=== PATIENT | female | born 1990 | race African-American/Black ===

== ENCOUNTER 2017-04-11 08:05 | Emergency (ER) | payer SELFPAY ==
[~2017-04-11] VITALS: Ht 160 cm; Wt 63.0 kg
[2017-04-11 08:07] VITALS: TEMP 36.8; Ht 160 cm; Wt 63.0 kg
[2017-04-11] MEDS ORDERED: SODIUM CHLORIDE 0.9% 1000ML 1,000 ML IV STA (08:47)
[2017-04-11 09:22] LABS: BASO % 0.1 %; BASO ABS # 0.01 K/uL (0-0.2); COMPLETE YES; EOS % 0.8 %; HEMATOCRIT 38.4 % (37-47); IG% 0.1 %; LYMPH % 23.9 %; LYMPH ABS # 2.01 K/uL (1.2-3.4); MEAN CELL VOLUME 85.7 fL (80-100); MEAN CORPUSCULAR HGB CONC 36.2 g/dl (32-36); MEAN PLATELET VOLUME 11.2 fL (7.4-10.4); MONO % 6.3 %; NEUT % 68.8 %; PLATELET COUNT 203 K/uL (130-400); RED BLOOD COUNT 4.48 M/uL (4.2-5.4); WHITE BLOOD COUNT 8.41 K/uL (4.8-10.8)
[2017-04-11 09:28] LABS: URINE APPEARANCE CLEAR (CLEAR); URINE BILIRUBIN NEG (NEG); URINE COLOR YELLOW; URINE NITRITE NEG (NEG); URINE PH 5.5 (4.5-7.5); URINE SPECIFIC GRAVITY 1.022 (1.000-1.030); UROBILINOGEN NEG (NEG)
[2017-04-11 09:29] LABS: MANUAL MICROSCOPIC REQUIRED? NO; REVIEW REQ? NO
[2017-04-11 09:31] LABS: INR 0.9 (0.9-1.1); PARTIAL THROMBOPLASTIN RATIO 1.1; PROTHROMBIN TIME (PATIENT) 9.8 SECONDS (9.0-12.0)
[2017-04-11 09:38] LABS: BUN/CREATININE RATIO 18.9 (10-20); CALCIUM 9.1 mg/dl (8.5-10.1); CREATININE 0.66 mg/dl (0.60-1.20); POTASSIUM 3.6 mmol/L (3.5-5.1)
[2017-04-11 09:41] LABS: ALB/GLOB RATIO 0.9 (0.9-2)
--- NOTE | 2017-04-11 10:21 | DIAGNOSTIC IMAGING REPORT ---
ABDOMINAL ULTRASOUND, RIGHT UPPER QUADRANT HISTORY: Generalized abdominal pain.. COMPARISON: None. FINDINGS: Pancreas: The pancreatic tail is obscured by overlying bowel gas. The remaining portions of the pancreas are within normal limits. Liver: Unremarkable. Gallbladder: No gallbladder wall thickening. No gallstones. CBD: 3 mm. Right kidney: No hydronephrosis. IMPRESSION: No significant abnormality identified within the right upper quadrant. Electronically signed by: Fabian Rea M.D. 04/11/2017 10:20 AM Dictated Date/Time: 04/11/2017 10:19 AM
--- NOTE | 2017-04-11 10:24 | DIAGNOSTIC IMAGING REPORT ---
EXAMINATION: PELVIC ULTRASOUND (transabdominal and endovaginal scanning) CLINICAL HISTORY: Vaginal bleeding COMPARISON STUDY: FINDINGS: The uterus measured 9.7 x 4.8 x 5.3 cm. The endometrial stripe measured 14 mm. There is a 14 mm cystlike structure within endometrium, possibly representing a gestational sac.. The right ovary measured 29 x 21 x 19 mm. The left ovary measured 53 x 29 x 31 mm. There is a complex 36 mm thick walled cyst, possibly representing a corpus luteum.. There is no ultrasonographic evidence of ovarian torsion. It should be noted that ovarian torsion can be present with normal Doppler ultrasonographic findings. There is complex fluid in the cul-de-sac and adnexal regions. IMPRESSION: 1. 14 mm cystlike structure within the endometrium, possibly representing early intrauterine gestational sac. Correlation with serial quantitative beta hCGs and follow-up ultrasonography is recommended 2. Complex 36 mm left ovarian cyst possibly representing a corpus luteum 3. Complex fluid within the cul-de-sac and adnexa. Electronically signed by: Seng Lynch M.D. 04/11/2017 10:22 AM Dictated Date/Time: 04/11/2017 10:19 AM
[2017-04-11 12:14] VITALS: BP 112/71; PULSE 73; O2SAT 100
--- NOTE | 2017-04-11 12:38 | EMERGENCY ROOM VISIT NOTE ---
History Report prepared by Carly: Juliann Bella Under the Supervision of: Dr. Oj Haywood D.O. First contact with patient: 08:16 Chief Complaint: ABDOMINAL PAIN Stated Complaint: LWR ABD. PAIN, SIDE AND BACK, TROUBLE BREATHING Nursing Triage Summary: pt reports right abd pain started 1 week ago. noticed after having intercourse 1 week ago hurt now pain in abd makes painful to breathe. hurts into back area. History of Present Illness The patient is a 26 year old female who presents to the Emergency Room with complaints of intermittent right-sided abdominal pain that started 1 week ago. The patient states that the pain seems to occur after having intercourse. She states that she experienced the pain for the first time last week after having intercourse with her . The pain lasted for 5 minutes then resolved on its own. She experienced the pain again this morning, around [id number], after trying to have intercourse. The pain was more severe today than it was last week and it lasted for 20 minutes. She states that the pain radiated into her back and legs. She also experienced shortness of breath with the pain as well as pain with ambulation. She denies any abnormal vaginal bleeding or discharge over the last week. The patient's last normal menstrual period was March 12. The patient has been 4 times in the past. She has 3 children at home and had 1 miscarriage 2 years ago. She states that she thinks the miscarriage was secondary to a blighted ovum. The patient has a history of an appendectomy but still has her gallbladder. Source of History: patient Onset: 1 week ago Position: abdomen (right-sided) Quality: other (right-sided abdominal pain) Timing: intermittent Modifying Factors (Worsening): other (intercourse) Associated Symptoms: + SOB, + back pain Note: bilateral leg pain, no abnormal vaginal bleeding or discharge Review of Systems See HPI for pertinent positives & negatives. A total of 10 systems reviewed and were otherwise negative. Past Medical & Surgical Medical Problems: (1) Bartholin's Gland Cyst (2) Hem Early Preg-Antepart Surgical Problems: (1) History of appendectomy Family History Cancer Hypertension Kidney disease Kidney stones Lung disease Seizures Social History Smoking Status: Current Every Day Smoker Alcohol Use: none Drug Use: none Marital Status: single Housing Status: lives with family Occupation Status: unemployed Current/Historical Medications No Active Prescriptions or Reported Meds Allergies Coded Allergies: No Known Allergies (Unverified , 04/11/17) Physical Exam Vital Signs Date Time Temp Pulse Resp B/P (MAP) Pulse Ox O2 Delivery O2 Flow Rate FiO2 04/11/17 12:14 73 15 112/71 100 Room Air 04/11/17 10:07 73 17 109/58 100 Room Air 04/11/17 08:07 36.8 74 18 109/71 100 Room Air Physical Exam CONSTITUTIONAL/VITAL SIGNS: Reviewed / noted above. GENERAL: Non-toxic in appearance. INTEGUMENTARY: Warm, dry, and [place]. HEAD: Normocephalic. EYES: without scleral icterus or trauma. ENT/OROPHARYNX: clear and moist. LYMPHADENOPATHY/NECK: Is supple without lymphadenopathy or meningismus. RESPIRATORY: Lungs clear and equal. CARDIOVASCULAR: Regular rate and rhythm. GI/ABDOMEN: Soft. Diffuse tenderness that is worse in the suprapubic and right lower quadrant areas. No organomegaly or pulsatile mass. No rebound or guarding. Normal bowel sounds. EXTREMITIES: Warm and well perfused. BACK: Mild right CVA tenderness. NEUROLOGICAL: Intact without focal deficits. PSYCHIATRIC: normal affect. MUSCULOSKELETAL: Normally developed with good muscle tone. Medical Decision & Procedures ER Provider Diagnostic Interpretation: US results as stated below per my review and radiologist interpretation: ABDOMINAL ULTRASOUND, RIGHT UPPER QUADRANT FINDINGS: Pancreas: The pancreatic tail is obscured by overlying bowel gas. The remaining portions of the pancreas are within normal limits. Liver: Unremarkable. Gallbladder: No gallbladder wall thickening. No gallstones. CBD: 3 mm. Right kidney: No hydronephrosis. IMPRESSION: No significant abnormality identified within the right upper quadrant. Electronically signed by: Fabian Rea M.D. 04/11/2017 10:20 AM Dictated Date/Time: 04/11/2017 10:19 AM EXAMINATION: PELVIC ULTRASOUND (transabdominal and endovaginal scanning) FINDINGS: The uterus measured 9.7 x 4.8 x 5.3 cm. The endometrial stripe measured 14 mm. There is a 14 mm cystlike structure within endometrium, possibly representing a gestational sac.. The right ovary measured 29 x 21 x 19 mm. The left ovary measured 53 x 29 x 31 mm. There is a complex 36 mm thick walled cyst, possibly representing a corpus luteum.. There is no ultrasonographic evidence of ovarian torsion. It should be noted that ovarian torsion can be present with normal Doppler ultrasonographic findings. There is complex fluid in the cul-de-sac and adnexal regions. IMPRESSION: 1. 14 mm cystlike structure within the endometrium, possibly representing early intrauterine gestational sac. Correlation with serial quantitative beta hCGs and follow-up ultrasonography is recommended 2. Complex 36 mm left ovarian cyst possibly representing a corpus luteum 3. Complex fluid within the cul-de-sac and adnexa. Electronically signed by: Seng Lynch M.D. 04/11/2017 10:22 AM Dictated Date/Time: 04/11/2017 10:19 AM Laboratory Results 04/11/17 09:07 Red Blood Count 4.48, Mean Corpuscular Volume 85.7, Mean Corpuscular Hemoglobin 31.0, Mean Corpuscular Hemoglobin Concent 36.2, Mean Platelet Volume 11.2, Neutrophils (%) (Auto) 68.8, Lymphocytes (%) (Auto) 23.9, Monocytes (%) (Auto) 6.3, Eosinophils (%) (Auto) 0.8, Basophils (%) (Auto) 0.1, Neutrophils # (Auto) 5.78, Lymphocytes # (Auto) 2.01, Monocytes # (Auto) 0.53, Eosinophils # (Auto) 0.07, Basophils # (Auto) 0.01 04/11/17 09:07 Test 04/11/17 08:30 04/11/17 09:07 Urine Color YELLOW Urine Appearance CLEAR (CLEAR) Urine pH 5.5 (4.5-7.5) Urine Specific [place] 1.022 (1.000-1.030) Urine Protein NEG (NEG) Urine Glucose (UA) NEG (NEG) Urine Ketones NEG (NEG) Urine Occult Blood NEG (NEG) Urine Nitrite NEG (NEG) Urine Bilirubin NEG (NEG) Urine Urobilinogen NEG (NEG) Urine Leukocyte Esterase NEG (NEG) White Blood Count 8.41 K/uL (4.8-10.8) Red Blood Count 4.48 M/uL (4.2-5.4) Hemoglobin 13.9 g/dL (12.0-16.0) Hematocrit 38.4 % (37-47) Mean Corpuscular Volume 85.7 fL (80-100) Mean Corpuscular Hemoglobin 31.0 pg (25-34) Mean Corpuscular Hemoglobin Concent 36.2 g/dl (32-36) Platelet Count 203 K/uL (130-400) Mean Platelet Volume 11.2 fL (7.4-10.4) Neutrophils (%) (Auto) 68.8 % Lymphocytes (%) (Auto) 23.9 % Monocytes (%) (Auto) 6.3 % Eosinophils (%) (Auto) 0.8 % Basophils (%) (Auto) 0.1 % Neutrophils # (Auto) 5.78 K/uL (1.4-6.5) Lymphocytes # (Auto) 2.01 K/uL (1.2-3.4) Monocytes # (Auto) 0.53 K/uL (0.11-0.59) Eosinophils # (Auto) 0.07 K/uL (0-0.5) Basophils # (Auto) 0.01 K/uL (0-0.2) RDW Standard Deviation 41.4 fL (36.4-46.3) RDW Coefficient of Variation 13.2 % (11.5-14.5) Immature Granulocyte % (Auto) 0.1 % Immature Granulocyte # (Auto) 0.01 K/uL (0.00-0.02) Prothrombin Time 9.8 SECONDS (9.0-12.0) Prothromb Time International Ratio 0.9 (0.9-1.1) Activated Partial Thromboplast Time 27.6 SECONDS (21.0-31.0) Partial Thromboplastin Ratio 1.1 Anion Gap 7.0 mmol/L (3-11) Est Creatinine Clear Calc Drug Dose 116.5 ml/min Estimated GFR () 142.3 Estimated GFR (Non- 122.8 BUN/Creatinine Ratio 18.9 (10-20) Calcium Level 9.1 mg/dl (8.5-10.1) Total Bilirubin 0.3 mg/dl (0.2-1) Aspartate Amino Transf (AST/SGOT) 11 U/L (15-37) Alanine Aminotransferase (ALT/SGPT) 16 U/L (12-78) Alkaline Phosphatase 69 U/L (45-117) Total Protein 7.5 gm/dl (6.4-8.2) Albumin 3.6 gm/dl (3.4-5.0) Globulin 3.9 gm/dl (2.5-4.0) Albumin/Globulin Ratio 0.9 (0.9-2) Human Chorionic Gonadotropin, Quant 1574 mIU/mL Laboratory results as stated above per my review. Medications Administered Medications (Trade) Dose Ordered Sig/Margarita Route Start Time Stop Time Status Last Admin Dose Admin Sodium Chloride 1,000 ml @ 999 mls/hr Q1H1M STAT IV 04/11/17 08:47 04/11/17 09:48 DC 04/11/17 09:13 999 MLS/HR ED Course 0841: Previous medical records were reviewed. The patient was evaluated in room A4. A complete history and physical examination was performed. 0847: Ordered Sodium Chloride 1000 ml @ 999 mls/hr IV 1223: On reevaluation, the patient is doing well. I discussed the results and findings with the patient. She verbalized agreement of the treatment plan. She was discharged home. Medical Decision Differential considered: pancreatitis, hepatitis, or acute cholecystitis, AAA, UTI, pyelonephritis, kidney stones, appendicitis, diverticulitis, shingles, bowel obstruction mesenteric ischemia, intussusception, hernia, ovarian torsion , ruptured ovarian cyst, ectopic , . This is a 26-year-old female who presents to the ED with a chief complaint of right-sided abdominal pain for the past week. She states that this morning around 7 AM she attempted having intercourse with her when she developed the pain. She also states the same thing occurred about a week ago. It lasted for about 20 minutes. The patient states that her last muscle. Was March 14. She is a with a positive test today. She has history of 1 miscarriage 2 years ago. The patient reports appendectomy in the past. She denies any other significant symptoms. She denies any vaginal bleeding or vaginal discharge. She denies any flank pain, nausea, vomiting or diarrhea. The patient's O+ blood type. Quantitative hCG was 1574. Complete metabolic panel was normal. CBC was normal. Gallbladder ultrasound was negative. Ultrasound of the pelvis reveals a 14 mm cystic structure in the uterus that could be suggestive of an early gestational sac. There is also a complex left ovarian cyst at 3.6 cm that could be a corpus luteum cyst and there is some complex fluid in the cul-de-sac. The patient was told the results of the test. She declined a pelvic exam. 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 The patient is felt to be stable for discharge. She will return for worsening or new symptoms. Medication Reconcilliation Current Medication List: was personally reviewed by me Blood Pressure Screening Patient's blood pressure: Normal blood pressure Impression Primary Impression: First trimester Additional Impression: Pelvic pain Scribe Attestation The scribe's documentation has been prepared under my direction and personally reviewed by me in its entirety. I confirm that the note above accurately reflects all work, treatment, procedures, and medical decision making performed by me. Departure Information Dispostion Home / Self-Care Prescriptions No Active Prescriptions or Reported Meds Referrals [facility] (PCP) Forms HOME CARE DOCUMENTATION FORM, IMPORTANT VISIT INFORMATION Patient Instructions My [facility] Additional Instructions Follow-up with [facility] in medicine in 2 days for recheck. A repeat quantitative hCG and ultrasound should be done. Return here for worsening or new symptoms. Take Tylenol for pain. Advised taking vitamins as well. Problem Qualifiers
== END 2017-04-11 12:44 | disposition home or self-care (01) ==
LOC: C.EDB 08:06 → C.EDA 12:44
DX: O00.01 Abdominal pregnancy with intrauterine pregnancy (principal); N83.202 Unspecified ovarian cyst, left side; N93.9 Abnormal uterine and vaginal bleeding, unspecified; R10.2 Pelvic and perineal pain; F17.210 Nicotine dependence, cigarettes, uncomplicated

== ENCOUNTER 2017-10-16 23:59 | Emergency (ER) | payer SELFPAY ==
[~2017-10-16] VITALS: Ht 160 cm; Wt 61.1 kg
[2017-10-17 00:03] VITALS: TEMP 37.2; Ht 160 cm; Wt 61.1 kg
[2017-10-17] MEDS ORDERED: XYLOCAINE 1%/SOD BICARB 20 ML VIAL INFIL STA (00:56)
--- NOTE | 2017-10-17 01:47 | EMERGENCY ROOM VISIT NOTE ---
ED Visit Note First contact with patient: 00:08 CHIEF COMPLAINT: Infection of the Bartholin's Gland HISTORY OF PRESENT ILLNESS: This 27-year-old female patient presents to the emergency department one day after they noticed a hard, red, tender area of the left labia. The patient does report a history of Bartholin's gland abscess, and states she has had to have them drained in the past. It is slowly getting larger, more painful and tender. No fever, chills, or loss of appetite. There has been no drainage from the area. There was no injury to the area preceding the infection. They rate the pain as severe and 10/10. Tetanus shot is up to date. They have tried nothing for the symptoms. The patient is not diabetic. REVIEW OF SYSTEMS: A 10 system review of systems was performed with positives and pertinent negatives listed in the history of present illness. All other systems were reviewed and are negative. ALLERGIES: None MEDICATIONS: None PMH: None SOCIAL HISTORY: Patient lives locally with family. She denies drug, alcohol, tobacco use. PHYSICAL EXAM: Vital Signs: Reviewed Nurse's notes, vital signs stable. GENERAL : This is a 27-year-old female, no acute distress, non toxic in appearance, well -developed well-nourished. SKIN: There is an erythematous indurated area of the left labia which measures about 2 cm in diameter. It is fluctuant but there is no pointing or drainage. There is a zone of inflammation around it but no lymphangitis. Capillary refill less than 2 seconds. MUSCULOSKELETAL: There is no limitation of the range of motion of the left lower extremity. EMERGENCY DEPARTMENT COURSE: I examined the patient. Verbal consent was obtained to perform the procedure. After saline and Betadine cleansing and 10 mL of 1% buffered lidocaine anesthesia, the abscess was incised with a number 11 scalpel blade. A large amount of purulent material was released with more expressed by pressure. A swab was obtained for culture. The abscess cavity was further probed with a needle stunt driver and the deep pocket expressed. The abscess cavity was then copiously irrigated with sterile saline under pressure. The area was then packed with bacitracin soaked packing. The area was cleaned with sterile saline and dressed with bacitracin and a bulky bandage. The patient did not tolerate the procedure well, and reported a significant amount of discomfort throughout the procedure. The patient was discharged home in stable condition. I attest that I have personally reviewed the patient's current medication list. Patient was found to have normal blood pressure on screening and does not require follow-up. DIFFERENTIAL DIAGNOSIS: Bartholin's cyst, abscess, STD, cellulitis, malignancy, lymphangitis, and others DIAGNOSIS: Abscess of the Bartholin's gland Problem List Medical Problems: (1) Bartholin's Gland Cyst Status: Resolved (2) Hem Early Preg-Antepart Status: Resolved Surgical Problems: (1) History of appendectomy Status: Chronic Current/Historical Medications No Active Prescriptions or Reported Meds Allergies Coded Allergies: No Known Allergies (Unverified , 10/17/17) Vital Signs Date Time Temp Pulse Resp B/P (MAP) Pulse Ox O2 Delivery O2 Flow Rate FiO2 10/17/17 02:00 88 18 112/72 99 10/17/17 00:03 37.2 95 20 107/72 99 Room Air Departure Information Impression Primary Impression: Bartholin's gland abscess Dispostion Home / Self-Care Condition GOOD Prescriptions No Active Prescriptions or Reported Meds Referrals No Doctor, Assigned (PCP) Patient Instructions ED Bartholins Cyst Trini, My [facility] Additional Instructions You were seen in the emergency department today for a Bartholin's gland abscess. This was incised and drained. A small amount of packing was placed within the abscess. This can be removed tomorrow. Please just pull on the end of the packing to remove it. Please keep the area clean and dry. You may want to consider sitz baths or warm soaks to help with drainage. 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 Ibuprofen(Motrin, Advil) may be used for fever or pain. Use 600mg every six hours as needed. Take with food. Avoid using more than 2400mg in a 24 hour period. Do not use 2400mg per day for more than three consecutive days without physician direction. Prolonged inappropriate use can lead to stomach upset or ulcers. (AND/OR) Acetaminophen(Tylenol) may be used for fever or pain. Use 1000mg every six hours as needed. Avoid using more than 3000mg in a 24 hour period. Return to the emergency department for significant redness, swelling, worsening pain, fever, chills or other concerning symptoms.
[2017-10-17 02:00] VITALS: BP 112/72; PULSE 88; O2SAT 99
== END 2017-10-17 02:01 | disposition home or self-care (01) ==
LOC: C.EDB 10-17 00:01
DX: N75.1 Abscess of Bartholin's gland (principal)

== ENCOUNTER 2017-12-27 17:28 | Emergency (ER) | payer SELFPAY ==
[~2017-12-27] VITALS: Ht 160 cm; Wt 62.2 kg
[2017-12-27 17:33] VITALS: TEMP 37; Ht 160 cm; Wt 62.2 kg
[2017-12-27] MEDS ORDERED: ALBUT/IPRATROP 3MG/0.5MG NEB 3 ML VIAL INH STA (17:47)
[2017-12-27] MEDS ORDERED: KETOROLAC TROMETHAMINE 30 MG/ML VIAL IV STA (17:47)
[2017-12-27 18:09] LABS: BASO % 0.4 %; BASO ABS # 0.03 K/uL (0-0.2); EOS % 3.5 %; EOS ABS # 0.27 K/uL (0-0.5); HEMATOCRIT 38.6 % (37-47); HEMOGLOBIN 13.6 g/dL (12.0-16.0); IG# 0.01 K/uL (0.00-0.02); LYMPH % 18.5 %; LYMPH ABS # 1.41 K/uL (1.2-3.4); MEAN CELL VOLUME 85.8 fL (80-100); MEAN CORPUSCULAR HEMOGLOBIN 30.2 pg (25-34); MEAN CORPUSCULAR HGB CONC 35.2 g/dl (32-36); MEAN PLATELET VOLUME 10.7 fL (7.4-10.4); MONO % 8.1 %; MONO ABS # 0.62 K/uL (0.11-0.59); NEUT % 69.4 %; PLATELET COUNT 203 K/uL (130-400); RED CELL DISTRIBUTION WIDTH CV 13.9 % (11.5-14.5); RED CELL DISTRIBUTION WIDTH SD 43.6 fL (36.4-46.3); WHITE BLOOD COUNT 7.64 K/uL (4.8-10.8)
--- NOTE | 2017-12-27 18:16 | DIAGNOSTIC IMAGING REPORT ---
CHEST 2 VIEWS ROUTINE CLINICAL HISTORY: cough ATYPICAL CHEST PAIN COMPARISON STUDY: 07/16/2017 FINDINGS: The cardiac and mediastinal contours are normal. There is no evidence of focal pulmonary consolidation. There is no evidence of failure. No pleural effusions are visualized.[ No pneumothorax is visualized. IMPRESSION: No active disease in the chest. Electronically signed by: Seng Lynch M.D. 12/27/2017 6:15 PM Dictated Date/Time: 12/27/2017 6:14 PM
[2017-12-27 18:28] LABS: CALCIUM 8.8 mg/dl (8.5-10.1); CREATININE 0.86 mg/dl (0.60-1.20); POTASSIUM 3.6 mmol/L (3.5-5.1)
[2017-12-27] MEDS ORDERED: METH4PAK PO (18:35)
[2017-12-27] MEDS ORDERED: VNTHFA/IN INH (18:35)
[2017-12-27] MEDS ORDERED: AZITTAB PO (18:35)
--- NOTE | 2017-12-27 18:37 | EMERGENCY ROOM VISIT NOTE ---
History First contact with patient: 17:38 Chief Complaint: COUGH Stated Complaint: CHEST PAIN, SIDE PAIN, SOB History of Present Illness The patient is a 27 year old female who presents to the Emergency Room with complaints of cough for the past 3-4 days. The patient states that the cough is productive with yellow sputum. She admits to some nasal congestion but denies any ear pain or sore throat, fever. The patient states that she is concerned because now it is hurting in the left posterior lower rib area when she coughs or moves. The patient is a smoker. The patient states she has been taking [id number] TheraFlu and ibuprofen just on 2 occasions. The patient denies any history of asthma or lung disease. Review of Systems 10 system review was performed and was negative unless stated otherwise history of present illness. Past Medical/Surgical History Medical Problems: (1) Bartholin's Gland Cyst (2) Hem Early Preg-Antepart Surgical Problems: (1) History of appendectomy Kidney stones Family History Cancer Hypertension Kidney disease Kidney stones Lung disease Seizures Social History Smoking Status: Current Every Day Smoker Alcohol Use: none Drug Use: none Marital Status: single Housing Status: lives with family Occupation Status: unemployed Current/Historical Medications No Active Prescriptions or Reported Meds Physical Exam Vital Signs Date Time Temp Pulse Resp B/P (MAP) Pulse Ox O2 Delivery O2 Flow Rate FiO2 12/27/17 18:12 80 18 100/53 97 Room Air 12/27/17 17:33 37.0 88 20 96 Room Air Physical Exam PHYSICAL EXAM: Vital Signs were reviewed: Temperature 37.0, pulse 88, respiratory rate 20, pulse ox 96% on room air reviewed Nurse's notes and agree. . GENERAL: 27-year-old female appears in no acute distress. MENTAL STATUS: Alert, oriented, coherent. EARS: Canals clear. TMs good light reflex, no erythema or fluid level noted. NOSE: Nasal mucosa with moderate erythema engorgement. PHARYNX: No erythema, no edema noted. No exudate noted. Airway is adequate. NECK: Supple, non-tender. No lymphadenopathy noted. LUNGS: Patient has decreased breath sounds throughout both lung escobar. Rhonchi noted throughout both lung escobar as well. No wheezing noted. CARDIAC: Regular rate and rhythm without murmur. SKIN: No rashes noted. Medical Decision & Procedures ER Provider Diagnostic Interpretation: CHEST 2 VIEWS ROUTINE CLINICAL HISTORY: cough ATYPICAL CHEST PAIN COMPARISON STUDY: 07/16/2017 FINDINGS: The cardiac and mediastinal contours are normal. There is no evidence of focal pulmonary consolidation. There is no evidence of failure. No pleural effusions are visualized.[ No pneumothorax is visualized. IMPRESSION: No active disease in the chest. Electronically signed by: Seng Lynch M.D. 12/27/2017 6:15 PM Laboratory Results 12/27/17 17:50 Red Blood Count 4.50, Mean Corpuscular Volume 85.8, Mean Corpuscular Hemoglobin 30.2, Mean Corpuscular Hemoglobin Concent 35.2, Mean Platelet Volume 10.7, Neutrophils (%) (Auto) 69.4, Lymphocytes (%) (Auto) 18.5, Monocytes (%) (Auto) 8.1, Eosinophils (%) (Auto) 3.5, Basophils (%) (Auto) 0.4, Neutrophils # (Auto) 5.30, Lymphocytes # (Auto) 1.41, Monocytes # (Auto) 0.62, Eosinophils # (Auto) 0.27, Basophils # (Auto) 0.03 12/27/17 17:50 Test 12/27/17 17:50 White Blood Count 7.64 K/uL (4.8-10.8) Red Blood Count 4.50 M/uL (4.2-5.4) Hemoglobin 13.6 g/dL (12.0-16.0) Hematocrit 38.6 % (37-47) Mean Corpuscular Volume 85.8 fL (80-100) Mean Corpuscular Hemoglobin 30.2 pg (25-34) Mean Corpuscular Hemoglobin Concent 35.2 g/dl (32-36) Platelet Count 203 K/uL (130-400) Mean Platelet Volume 10.7 fL (7.4-10.4) Neutrophils (%) (Auto) 69.4 % Lymphocytes (%) (Auto) 18.5 % Monocytes (%) (Auto) 8.1 % Eosinophils (%) (Auto) 3.5 % Basophils (%) (Auto) 0.4 % Neutrophils # (Auto) 5.30 K/uL (1.4-6.5) Lymphocytes # (Auto) 1.41 K/uL (1.2-3.4) Monocytes # (Auto) 0.62 K/uL (0.11-0.59) Eosinophils # (Auto) 0.27 K/uL (0-0.5) Basophils # (Auto) 0.03 K/uL (0-0.2) RDW Standard Deviation 43.6 fL (36.4-46.3) RDW Coefficient of Variation 13.9 % (11.5-14.5) Immature Granulocyte % (Auto) 0.1 % Immature Granulocyte # (Auto) 0.01 K/uL (0.00-0.02) Anion Gap 6.0 mmol/L (3-11) Est Creatinine Clear Calc Drug Dose 82.0 ml/min Estimated GFR () 108.1 Estimated GFR (Non- 93.2 BUN/Creatinine Ratio 9.4 (10-20) Calcium Level 8.8 mg/dl (8.5-10.1) Medications Administered Medications (Trade) Dose Ordered Sig/Margarita Route Start Time Stop Time Status Last Admin Dose Admin Ketorolac Tromethamine (Toradol Inj) 30 mg NOW STAT IV 12/27/17 17:47 12/27/17 17:49 DC 12/27/17 17:54 30 MG Albuterol/ Ipratropium (Duoneb) 3 ml NOW STAT INH 12/27/17 17:47 12/27/17 17:49 DC 12/27/17 17:54 3 ML ED Course She was evaluated. The patient's EMR medication list were reviewed. IV access was obtained. CBC and differential, renal profile was ordered. The patient was given a DuoNeb. The patient was given Toradol 30 mg IV for pain. Chest x- ray was ordered and interpreted by the radiologist and myself as above without any acute findings. Labs are reviewed and were normal. The patient was reevaluated and stated she felt a little better after the DuoNeb. The patient was discharged home in stable condition. Medical Decision Differential diagnosis include pneumonia, bronchitis, viral URI, pleuritic chest pain, costochondritis The patient is usually seen at [facility] therefore I will prophylactically treat this patient with antibiotics. [place] Drug Monitoring [place] Search Results: patient reviewed within database Medication Reconcilliation Current Medication List: was personally reviewed by me Blood Pressure Screening Patient's blood pressure: Normal blood pressure Impression Primary Impression: Upper respiratory infection Departure Information Dispostion Home / Self-Care Condition GOOD Prescriptions Albuterol Hfa (VENTOLIN HFA) 200 Puffs/06844 Mcg Aers 2 PUFFS INH QID for 5 Days, #1 INHALER Prov: Rachana Meneses PA-C 12/27/17 Azithromycin (ZITHROMAX Z-LORENZO) 250 Mg Tab 0 PO UD, #1 PKT Prov: Rachana Meneses PA-C 12/27/17 Methylprednisolone (MEDROL DOSEPAK) 4 Mg Lorenzo 0 PO DAILY, #1 PKT Prov: Rachana Meneses PA-C 12/27/17 Referrals No Doctor, Assigned (PCP) Forms HOME CARE DOCUMENTATION FORM, IMPORTANT VISIT INFORMATION Patient Instructions [facility] - [facility], [facility] Additional Instructions Ibuprofen 600 mg every 6 hours with food for pain. Take Medrol Dosepak as prescribed. Recommend fmfv-npp-[id number] Mucinex as directed on the label for 5 days. Use the inhaler 2 puffs every 4 hours for 5 days then 2 puffs every 4 hours as needed. Take Z-Lorenzo as prescribed. If symptoms persist or worsen, return to the ER. Problem Qualifiers Primary Impression: Upper respiratory infection URI type: unspecified viral URI Qualified Codes: J06.9 - Acute upper respiratory infection, unspecified
[2017-12-27 19:23] VITALS: BP 101/59; PULSE 82; O2SAT 96
== END 2017-12-27 19:20 | disposition home or self-care (01) ==
LOC: C.EDB 17:29
DX: J06.9 Acute upper respiratory infection, unspecified (principal); F17.200 Nicotine dependence, unspecified, uncomplicated

== ENCOUNTER 2018-04-23 19:52 | Emergency (ER) | payer SELFPAY ==
[~2018-04-23] VITALS: Ht 160 cm; Wt 59.0 kg
[2018-04-23 19:55] VITALS: TEMP 36.9; Ht 160 cm; Wt 59.0 kg
[2018-04-23] MEDS ORDERED: ACET-1256 PO (20:31)
[2018-04-23] MEDS ORDERED: ASPI-391 PO (20:32)
[2018-04-23] MEDS ORDERED: IBUP-1050 PO (20:32)
[2018-04-23] MEDS ORDERED: OXYC-90 PO (20:36)
[2018-04-23] MEDS ORDERED: AMOX875T PO (20:36)
[2018-04-23] MEDS ORDERED: OXYCODONE IR HOME PACK PO ONE (20:45)
[2018-04-23] MEDS ORDERED: AMOXICIL/CLAVU 875MG HOME PACK PO ONE (20:45)
[2018-04-23 21:02] VITALS: BP 105/66; PULSE 80; O2SAT 98
--- NOTE | 2018-04-23 23:48 | EMERGENCY ROOM VISIT NOTE ---
History First contact with patient: 20:03 Chief Complaint: DENTAL PAIN Stated Complaint: TOOTHACHE, HEADACHE,EAR PAIN, FACE SWOLLEN Nursing Triage Summary: Patient c/o dental pain that began 4 days ago. History of Present Illness The patient is a 27 year old female who presents to the Emergency Room with complaints of right upper and lower dental pain. The patient reports that her pain started 4 days ago, and is now noticing swelling of the face. She does report a history of dental problems, and actually had dental extractions performed in the past at [facility]. She did call her office but they cannot get her in to see a dentist until next month. The patient reports that she has been taking ibuprofen and Tylenol without relief, and rates her discomfort an 8 out of 10. She denies any fevers or chills, or difficulty swallowing. Review of Systems 10 system review was performed and was negative except for pertinent positives and negatives as indicated in history of present illness Past Medical/Surgical History Medical Problems: (1) Bartholin's Gland Cyst (2) Dental infection (3) Hem Early Preg-Antepart Surgical Problems: (1) History of appendectomy Family History Cancer Hypertension Kidney disease Kidney stones Lung disease Seizures Social History Smoking Status: Current Every Day Smoker Alcohol Use: none Drug Use: none Marital Status: single Housing Status: lives with family Occupation Status: unemployed Current/Historical Medications Scheduled Amoxicillin & Pot Clavulanate (Augmentin 875-125 mg), 1 TAB PO BID Scheduled PRN Acetaminophen (Tylenol), 1,000 MG PO DAILY PRN for Pain Wdltrkj-Nfnaeycckibhh-Rlsrpipu (Excedrin Extra Strength), 2 TABS PO DAILY PRN for Pain Ibuprofen (Advil), 400 MG PO DAILY PRN for Pain Oxycodone Ir (Roxicodone Ir), 1 TAB PO Q4H PRN for Pain Physical Exam Vital Signs Date Time Temp Pulse Resp B/P (MAP) Pulse Ox O2 Delivery O2 Flow Rate FiO2 04/23/18 21:02 80 18 105/66 98 04/23/18 19:55 36.9 84 18 97/61 97 Room Air Physical Exam CONSTITUTIONAL: Healthy and well nourished. Alert and oriented X 3 with positive affect. HEENT: Normocephalic, atraumatic. Pupils equal, round and reactive. No obvious facial edema noted. No overriding erythema. OROPHARYNX: The patient has eroded cavities of the right maxillary and mandibular molars. She has no obvious gingival erythema, fluctuance or pointing. No evidence for Vinayak's angina or retropharyngeal abscess. LYMPHATICS: No preauricular, submental, submandibular or cervical chain adenopathy. NECK: Full active range of motion without discomfort. RESPIRATORY: Clear to auscultation bilaterally with no wheezing, crackles, rhonchi or stridor. CARDIOVASCULAR: Regular rate and rhythm with no murmurs, rubs or gallops. INTEGUMENTARY: No rash or other significant dermatologic conditions noted. NEUROLOGIC: Facial sensations are intact. Medical Decision & Procedures ED Course Patient history and physical exam were performed. Nurse's notes were reviewed. Vital signs were reviewed and were normal. The patient will be provided prescriptions for Augmentin and OxyIR 5 mg. She was encouraged to continue alternating ibuprofen and Tylenol for baseline pain relief. She was instructed to follow-up with her dentist for further management. The patient was advised that she may need to follow-up with [facility] for further management until she can see her dentist. She was instructed to return to the emergency department for any significantly worsening swelling, fever or other concerns. The patient was advised that the emergency department does not provide dental services, referrals or ongoing dental pain management. The patient was happy with plan of care, voiced understanding of all discharge instructions, and rated her discomfort a 6 out of 10 at the conclusion of my exam. Medical Decision [place] Drug Monitoring [place] Search Results: patient reviewed within database, no issues identified Medication Reconcilliation Current Medication List: was personally reviewed by [place] Blood Pressure Screening Patient's blood pressure: Normal blood pressure Impression Primary Impression: Pain, dental Departure Information Dispostion Home / Self-Care Condition GOOD Prescriptions Oxycodone Ir (Roxicodone Ir) 5 Mg Tab 1 TAB PO Q4H Y for Pain, #15 TAB For Initial Treatment Prov: Parish Franklin PA 04/23/18 Amoxicillin & Pot Clavulanate (Augmentin 875-125 mg) 1 Tab Tab 1 TAB PO BID for 9 Days, #18 TAB Prov: Parish Franklin PA 04/23/18 Forms HOME CARE DOCUMENTATION FORM, IMPORTANT VISIT INFORMATION Patient Instructions [facility] Additional Instructions Finish all Augmentin antibiotics as prescribed. Ibuprofen 800 mg and/or Tylenol 1000 mg every 8 hours. You may also alternate these medications for more effective pain relief: Ibuprofen --4 HRS--> Tylenol --4 HRS--> ibuprofen --4 HRS--> Tylenol .... OxyIR if needed for worse pain. Do not drink or drive while taking OxyIR. Soft foods. Return to the emergency department for any progressively worsening infection. YOU MUST SEE A DENTIST FOR DEFINITIVE CARE. THE EMERGENCY DEPARTMENT DOES NOT PROVIDE DENTAL SERVICES, REFERRALS OR CHRONIC DENTAL PAIN MANAGEMENT. YOU MAY ALSO CALL [facility] FOR PAIN MANAGEMENT UNTIL YOU SEE YOUR DENTIST.
== END 2018-04-23 21:03 | disposition home or self-care (01) ==
LOC: C.EDB 19:54 → C.EDD 21:03
DX: K08.89 Other specified disorders of teeth and supporting structures (principal); F17.200 Nicotine dependence, unspecified, uncomplicated

== ENCOUNTER 2019-05-15 23:28 | Inpatient (IN) ==
[2019-05-16 00:32] LABS: Hematocrit (blood only) 31.4 % (37-47); Hemoglobin 11.1 g/dL (12.0-16.0); Mean Corpuscular Volume 84.9 fL (80-100); Mean Platelet Volume 11.2 fL (7.4-10.4); Platelet Count 194 K/uL (130-400); RDW Coefficient of Variation 13.8 % (11.5-14.5); RDW Standard Deviation 42.6 fL (36.4-46.3); White Blood Count 10.55 K/uL (4.8-10.8)
[2019-05-16 00:35] LABS: Mean Corpuscular Hgb Conc 35.4 g/dL (32-36)
[2019-05-16] MEDS ORDERED: OXYTOCIN 30 UNITS/500 ML BAG IV PRN ×2 (00:44→03:42)
[2019-05-16] MEDS ORDERED: PENICILLIN G POTASSIUM 6 MU in DEXTROSE 5% 250 ML IV STA (00:44)
[2019-05-16] MEDS: LACTATED RINGER'S 1,000 ML IV PRN ×2 (01:03→02:04)
[2019-05-16] MEDS ORDERED: BUPIVACAINE 0.25% 30 ML VIAL ONE (01:06)
[2019-05-16] MEDS ORDERED: fentaNYL citrate 100 MCG/2 ML VIAL ONE (01:07)
[2019-05-16] MEDS ORDERED: ePHEDrine sulfate 50 MG/ML AMP ONE (01:07)
[2019-05-16] MEDS ORDERED: fentaNYL 2MCG/ML ROPIV 1.25MG/ML 100 ML BAG EPI ONE (01:07)
--- NOTE | 2019-05-16 01:14 | History and Physical Report ---
DATE OF ADMISSION: 05/16/2019 CHIEF COMPLAINT: Intrauterine , 40 weeks gestation, contractions. HISTORY OF PRESENT ILLNESS: The patient is a 28-year-old 6, para 3. She had 2 spontaneous ABs. She is in good general health. No problems. Her due date is 05/15/2019. OBSTETRICAL HISTORY: As follows: In 2009, she had a girl, 6 pounds 5 ounces, spontaneous vaginal delivery, 41+ weeks gestation, 8-hour labor, half hour push. Second, in 2011, boy, 5 pounds 10 ounces, spontaneous vaginal delivery, 37 weeks, 3-hour labor, 10-minute push, and then last one in 2012, a girl, 6 pounds 10 ounces, spontaneous vaginal delivery about 8-hour labor, 10-minute push. She states she is isaias all day, has not been in the office for care for weeks. ALLERGIES: No known drug allergies. PAST SURGICAL HISTORY: No previous surgery, except for an appendix at age 12. No history of rheumatic fever, heart disease, heart murmur, diabetes, tuberculosis. Three children in good health. SOCIAL HISTORY: No smoking. No excessive alcohol intake. She is employed outside the home. FAMILY HISTORY: Mom is 44 in good health. Father, 42, in good health. Five sisters, 3 brothers in good health. REVIEW OF SYSTEMS: HEAD: No symptoms of frequent or severe headaches. EYES: No symptoms of blurred vision, double vision. EARS: No symptoms of frequent ear infections, difficulty hearing. PHYSICAL EXAMINATION: GENERAL: Well-developed, well-nourished 28-year-old white female, alert, oriented x3 and cooperative, in no acute distress, appeared her stated age EYES: Conjunctivae are pink. Sclerae white, no evidence of jaundice. EARS: Had normal light reflex bilaterally. NOSE: Had normal mucosa. Septum is midline. There were no polyps. THROAT: No erythema or evidence of infection. Teeth are in good state of repair. HEAD: Normocephalic, normal distribution of hair. NECK: Supple. Trachea midline. Thyroid is not enlarged. There is no adenopathy appreciated. Both carotids are of good intensity. CHEST: Clear to auscultation and percussion. No wheezes, rales or rhonchi appreciated. HEART: Had regular rhythm. S1, S2 are normal. BREASTS: Normal. ABDOMEN: Soft and nontender. Term size fetus. Contractions every 2-3 minutes. MUSCULOSKELETAL: Revealed no calf tenderness. PELVIC: Cervix 5-6 cm, vertex presentation. IMPRESSIONS OF THIS CASE: Intrauterine at term, active labor. History of appendectomy. No current care.
[2019-05-16 01:16] LABS: Rubella IgG Antibody Immune (Immune)
[2019-05-16 01:17] LABS: Hepatitis B Surface Antigen Neg (Neg)
--- NOTE | 2019-05-16 01:40 | Anesthesiology Consultation ---
Date of Service May 16, 2019 Assessment & Plan Chart Review Chart Review: Acceptable Risk for Surgery, Patient NOT seen in Pre Admission Testing and Acceptable Risk for Labor Epidural Consults Requested none ASA ASA2 Proposed Anesthesia Anesthesia Type: General and Labor Epidural Risk / Benefits Reviewed With: PT / POA / Parent / Guardian, Accepts Plan and Informed Consent Obtained History Height/Weight Height: 5 ft 3 in Weight: 75.75 kg Allergies Allergy/AdvReac Type Severity Reaction Status Date / Time No Known Allergies Allergy Verified 05/15/19 23:33 Medications Home Medications Medication Instructions Recorded Confirmed Last Taken PNV cmb#95-ferrous fumarate-FA 1 tab PO DAILY 02/24/19 05/15/19 05/13/19 [] Active Medications Generic Name Dose Route Start Last Admin Trade Name Freq PRN Reason Stop Dose Admin Penicillin G Potassium 6 mu/ 262 mls @ 262 mls/hr 05/16/19 00:44 05/16/19 01:01 Dextrose IV 05/16/19 01:43 262 mls/hr NOW STA Administration Lactated Ringer's 1,000 mls @ 125 mls/hr 05/16/19 00:44 05/16/19 01:03 Lr IV 05/18/19 00:43 999 mls/hr .Q8H PRN Administration L&D Protocol Protocol NPO Date Last Intake of Fluids: 05/15/19 Time Last Intake of Fluids: 22:00 Date Last Intake of Solids: 05/15/19 Time Last Intake of Solids: 18:00 Past Medical History Medical History No acute medical problems Anemia GERD (gastroesophageal reflux disease) Normal vaginal delivery x3 2009 C, 2011 [facility] , 2012 [facility] Obese Exercise / Class Metabolic Activity II 4-5 Yardwork/Stairs/Walk up hill Past Anesthesia History No Hx of Anesthesia Complications and No Family Hx of Anesthesia Complications History of PONV No Hx of PONV and No Hx of Motion Sickness Social History Smoking Status: Current every day smoker tobacco type: cigarettes Smoking cigarettes per day: 1ppd Do You Dip or Chew Tobacco: No Hx Alcohol Use: No Hx Substance Use: No substance use type: does not use Physical Exam Vital Signs Last Vital Signs Temp 36.9 C 05/15/19 23:40 Pulse 80 05/16/19 01:36 Resp 18 05/15/19 23:40 BP 109/66 05/15/19 23:40 Pulse Ox 100 05/16/19 01:36 Constitutional + obese ENMT Mouth: no dentition abnormality Thyromental Distance: < 3.5 Finger Breadths Mallampati Class: II Neck normal visual inspection and trachea midline; neck extension not limited Respiratory normal respiratory effort Auscultation: lungs clear to auscultation bilaterally Cardiovascular Rate/Rhythm: regular rate and regular rhythm Heart Sounds: no murmur Musculoskeletal Spine: lumbar spine normal to inspection; normal cervical ROM Neurologic moves all extremities Motor/Sensory: no sensory deficit Psychiatric Orientation: alert and oriented x 3 Testing Laboratory Results 05/16/19 00:15 05/16/19 00:30 Trichomonas Preparation - Final Vaginal
[2019-05-16 01:45] LABS: Hepatitis C IgG 13Yrs+Old_Rflx Neg (Neg)
[2019-05-16] MEDS ORDERED: PROMETHAZINE HCL 25 MG in SODIUM CHLORIDE 0.9% 50 ML IV PRN (02:02)
[2019-05-16] MEDS ORDERED: DiphenhydrAMINE HCL 50 MG/ML VIAL IV PRN (02:02)
[2019-05-16] MEDS ORDERED: NALBUPHINE HCL INJ 10 MG/ML AMP IV PRN (02:02)
[2019-05-16] MEDS ORDERED: NALOXONE HCL 1 MG in SODIUM CHLORIDE 0.9% 1000ML 1,000 ML IV PRN (02:02)
[2019-05-16] MEDS ORDERED: NALOXONE HCL 0.4 MG/1 ML VIAL/CARP IV PRN (02:02)
[2019-05-16] MEDS ORDERED: ONDANSETRON INJ 2 MG/ML 2 ML VIAL IV PRN (02:02)
[2019-05-16] MEDS ORDERED: ePHEDrine sulfate 50 MG/ML AMP IV PRN (02:02)
[2019-05-16] MEDS ORDERED: fentaNYL 2MCG/ML ROPIV 1.25MG/ML 100 ML BAG EPI PRN (02:02)
[2019-05-16] MEDS ORDERED: METHYLERGONOVINE MALEATE 0.2 MG/ML AMP ONE (03:36)
[2019-05-16] MEDS ORDERED: DIPHTHERIA/TETANUS/PERTUSSIS 0.5 ML SYR/VIAL IM ONE (03:42)
[2019-05-16] MEDS ORDERED: SUPERCREAM 0.870% 15 GM JAR EXT PRN (03:42)
[2019-05-16] MEDS ORDERED: METHYLERGONOVINE MALEATE 0.2 MG/ML AMP IM ONE (03:42)
[2019-05-16] MEDS ORDERED: BISACODYL 10 MG SUPP PR PRN (03:42)
[2019-05-16] MEDS ORDERED: HYDROCORTISONE ACETATE 25 MG SUPP PR PRN (03:42)
[2019-05-16] MEDS ORDERED: BENZOCAINE 20% AER SPR 82.5 GM CAN EXT PRN (03:42)
--- NOTE | 2019-05-16 04:22 | Delivery Summary ---
DATE OF OPERATION: 05/16/2019 DELIVERY NOTE: Mrs. Ratliff had been followed early in our office for care and delivery and then had not come back for months. When she did come back, she was admitted in spontaneous labor at 30 weeks gestation. She was about 5-6 cm dilated. We did her blood work today, history and physical, started her on IV penicillin. She eventually requested and received epidural. She received good pain relief, quickly went to full dilatation with bulging membranes. Membranes were ruptured. Fluid was meconium stained, and about 3 pushes, pushed out a live infant via direct occiput anterior position over an intact perineum. was suctioned through the mouth and the nose. Shoulders were delivered without difficulty. Cord was clamped and cut by the patient's partner and cord blood was taken. With IV Pitocin running, the placenta was removed intact. Inspection of the perineum revealed no lacerations. The uterus contracted nicely. Hemostasis was good. Estimated blood loss was 100 mL. The patient tolerated the procedure well and left the delivery room in good condition. I attest to the content of the Intraoperative Record and any orders documented therein. Any exception s are noted below.
--- NOTE | 2019-05-16 05:10 | Anesthesia Procedure Note ---
Date of Service May 16, 2019 Anesthesia Post Epidural Note Vital Signs Vital Signs: Temp Pulse Resp BP Pulse Ox 36.6 C 70 18 116/69 100 05/16/19 03:48 05/16/19 05:02 05/16/19 04:32 05/16/19 05:02 05/16/19 04:56 Notes Mental Status: alert / awake / arousable Nausea / Vomiting: adequately controlled Pain: adequately controlled Airway Patency, RR, SpO2: stable & adequate BP & HR: stable & adequate Hydration State: stable & adequate Neuraxial Anesthesia: was administered and sensory block is resolving Anesthetic Complications: no major complications apparent Epidural: Removed without complications and With tip intact
[2019-05-16] MEDS: IBUPROFEN 600 MG TAB PO PRN ×2 (06:08→17:51)
[2019-05-16] MEDS: ACETAMINOPHEN 325 MG TAB PO PRN ×3 (07:58→21:35)
[2019-05-16] MEDS: DOCUSATE SODIUM 100 MG CAP PO SCH ×2 (07:59→21:11)
[2019-05-16] MEDS: FERROUS SULFATE 325 MG TAB PO SCH (07:59)
[2019-05-16] MEDS: PRENATAL VITAMIN 1 TAB PO SCH (07:59)
--- NOTE | 2019-05-17 07:02 | Obstetrical Progress Note ---
Date of Service May 17, 2019 Physical Exam Physical Exam: abdomen soft and non tender vaginal bleeding scant to moderate hgb 11.1 no calf tenderness ambulating well patient requests discharge
[2019-05-17 07:33] LABS: Hematocrit (blood only) 30.6 % (37-47); Hemoglobin 10.6 g/dL (12.0-16.0); Mean Corpuscular Hemoglobin 29.1 pg (25-34); Mean Corpuscular Hgb Conc 34.6 g/dL (32-36); Mean Corpuscular Volume 84.1 fL (80-100); Mean Platelet Volume 11.8 fL (7.4-10.4); Platelet Count 178 K/uL (130-400); RDW Coefficient of Variation 13.9 % (11.5-14.5); RDW Standard Deviation 42.7 fL (36.4-46.3); Red Blood Count 3.64 M/uL (4.2-5.4); White Blood Count 11.71 K/uL (4.8-10.8)
[2019-05-17] MEDS: PRENATAL VITAMIN 1 TAB PO SCH (08:20)
[2019-05-17] MEDS: FERROUS SULFATE 325 MG TAB PO SCH (08:20)
[2019-05-17] MEDS: IBUPROFEN 600 MG TAB PO PRN ×2 (08:20→15:44)
[2019-05-17] MEDS: DOCUSATE SODIUM 100 MG CAP PO SCH (08:20)
[2019-05-17] MEDS: ACETAMINOPHEN 325 MG TAB PO PRN ×2 (11:46→17:51)
[2019-05-17] MEDS ORDERED: BISACODYL 5 MG TABEC PO SCH (20:00)
--- NOTE | 2019-05-17 22:30 | Newborn Progress Note ---
Subjective Height & Weight Length (height) cm: 1.6 m Weight: 3.233 kg Weight (Pounds Calculated): 7 lbs and 2.0 ozs Current Weight: 75.75 kg Results Laboratory Results (24 Hours) Laboratory Results - last 24 hr 05/17/19 07:08 WBC 11.71 H RBC 3.64 L Hgb 10.6 L Hct 30.6 L MCV 84.1 MCH 29.1 MCHC 34.6 RDW Std Deviation 42.7 RDW Coeff of Mk 13.9 Plt Count 178 MPV 11.8 H PG Care Time/CCT Total # of Minutes Spent Total Time Spent with Patient: Total time spent is greater than 50% in coordination of care (as documented) at patient's floor/unit and/or counseling patient:
[2019-05-18 05:19] LABS: Chlamydia Trach RNA NOT DETECTED (NOT DETECTED); GC (Neis gonorrhoeae) RNA NOT DETECTED (NOT DETECTED)
== END 2019-05-17 18:55 | disposition home or self-care (01) | DRG 807 ==
LOC: OPB 23:28 → 4S1 23:30 → 4S2 05-16 06:07